=== PATIENT | male | born 1970 | race Caucasian/White ===

== ENCOUNTER 2018-12-13 12:00 | Emergency (ER) | payer BC ==
[~2018-12-13] VITALS: Ht 162.6 cm; Wt 84.8 kg
[2018-12-13 12:02] VITALS: Ht 162.6 cm; Wt 84.8 kg
[2018-12-13 13:25] LABS: BASOPHIL % 0.2 % (0-2); PLATELET COUNT 197 x10^3mcL (130-400)
[2018-12-13 13:50] LABS: CALCIUM 8.8 mg/dL (8.5-10.1); CARBON DIOXIDE 30.2 mmol/L (21-32); CHLORIDE SERUM 101 mmol/L (98-107); CREATININE SERUM 0.9 mg/dL (0.7-1.3); GFR1 > 60 mL/min; GLUCOSE SERUM 99 mg/dL (74-106); POTASSIUM SERUM 4.1 mmol/L (3.5-5.1); SODIUM SERUM 137 mmol/L (136-145)
[2018-12-13 13:54] LABS: ALBUMIN 3.6 g/dL (3.4-5.0); ALKALINE PHOSPHATASE 111 U/L (46-116); ALT/SGPT 42 U/L (16-63); AMYLASE 35 U/L (25-115); AST/SGOT 20 U/L (15-37); BILIRUBIN TOTAL 0.5 mg/dL (0.20-1.00); LIPASE 109 IU/L (73-393); TOTAL PROTEIN, SERUM 7.4 g/dL (6.4-8.2)
[2018-12-13 14:50] VITALS: BP 154/94
== END 2018-12-13 14:50 | disposition home or self-care (01) ==
LOC: ED 12:00
PROVIDERS: Emergency Medicine
DX: K80.50 Calculus of bile duct without cholangitis or cholecystitis without obstruction (principal)
CPT/HCPCS: 36415; J1885